=== PATIENT | female | born 2000 | race Hispanic/Latino ===

== ENCOUNTER 2018-03-16 17:43 | Day surgery (SDC) ==
[2018-03-16 18:36] VITALS: BMI 18.8
--- NOTE | 2018-03-16 18:38 | PDOC.LDHP ---
Labor and Delivery H&P Chief complaint: other Allergies/Adverse Reactions: Allergies Allergy/AdvReac Type Severity Reaction Status Date / Time No Known Allergies Allergy Verified 03/16/18 18:27
--- NOTE | 2018-03-16 18:55 | PDOC.FPROB ---
FMR OB H&P: HPI - History of Present Illness Chief Complaint: Vaginal spotting Indentification: 17 year old at 26.5 wks by LMP/2T u/s History of Present Illness: 17 year old at 26.5 wks by LMP/2T fan with GAYLE of 06/17/2018 that presents with vaginal spotting. Patient states that she laid down for a nap and noted was awoken with an upset stomach. This happened on two separate occasions. The second time she went to the restroom and noted what appeared to be dark brown blood covering half of her panty liner. She state that one time after that she went to the restroom and noted some dark blood when wiping. She has been to the restroom several times since then and has not noted any blood. Patient states that ever since becoming she has had an increase in vaginal discharge, but there has been no change in the discharge from when it first started. Patient denies LoF, contractions, headache, scotoma, or RUQ pain. Patient endorses good movement. Primary Care Physician: ROSETTE Heredia FMR OB H&P: Current - Care : 1 Para: 0 Gestational age: 26.5 wks Due date: 06/17/2018 - OB Labs Blood type: O RH: positive Antibody Screen: negative HIV: negative RPR: negative HepBsAg: negative Rubella: immune GBS: unknown Additional labs: Reported hx of chlamydia at 20 wks s/p treatment with reported negative MERYL FMR OB H&P: History - Past Medical History PMH: Insignificant - OB History OB History: Chlamydia at 20 wks s/p treatment with reported negative MERYL - Social History Social History: Denies alcohol, drug, or tobacco use - Family History Family History: Noncontributory FMR OB H&P: Medications - Current Home Medications: Medication Instructions Recorded Confirmed Type Vit Calc,Iron,Folic 1 each PO DAILY 03/16/18 03/16/18 History [ Vitamins] Allergies/Adverse Reactions: Allergies Allergy/AdvReac Type Severity Reaction Status Date / Time No Known Allergies Allergy Verified 03/16/18 18:27 FMR OB H&P: ROS - Review of Systems General: denies: fever/chills, weight/appetite/sleep changes, fatigue Eyes: denies: vision changes, double vision, scotomas ENT: denies: nasal congestion, rhinorrhea Cardiovascular: denies: chest pain, palpitation, edema, paroxysmal nocturnal dyspnea Respiratory: denies: cough, congestion, shortness of breath Gastrointestinal: denies: abdominal pain, bloating, cramping, nausea, vomiting, diarrhea, constipation, bright red blood Genitourinary (Female): reports: polyuria, vaginal discharge, vaginal bleeding. denies: incontinence, dysuria, hematuria, vaginal pain, contractions, vaginal pressure Musculoskeletal: denies: pain, tenderness Neurologic: denies: numbness, syncope, seizures, weakness Integumentary: denies: itching, lesions Psychological: denies: depression, anxiety FMR OB H&P: Vital Signs - Maternal Vital signs: BP 118/78 Pulse 77 - Heart Tones Baseline: 140 Variability: moderate Acceleration: present Deceleration: absent Category: category 1 [place] contractions every: Irritability FMR OB H&P: Physical Exam - Physical Exam General: NAD, awake, alert and oriented HEENT: normocephalic and atraumatic, MMM, grossly normal vision, grossly normal hearing, good dention Neck: supple Heart: RRR, pulses present, no edema General: CTAB, no respiratory distress, no retractions Abdomen: soft, gravid, non-tender, bowel sound present Musculoskeletal: normal gait and station, pulses present Neurological: no tremor, no focal deficit Skin: no rash, capillary refill <2 seconds Lymphatic: no unusual bruising or bleeding Psychiatric: intact recent and remote memory, good judgement and insight, normal mood and affect - Pelvic Exam Vulva: normal hair distribution, no masses, no lesions, no discharge, no blood Cervix: no masses, no lesions, no blood Deviation from normal: Moderate amount of thin, green discharge noted SVE: Sterile speculum exam showed cervix closed, no bleeding from os FMR OB H&P: A/P - Problem List (1) Vaginal bleeding during Current Visit: Yes Status: Acute Code(s): O46.90 - ANTEPARTUM HEMORRHAGE, UNSPECIFIED, UNSPECIFIED TRIMESTER (2) Current Visit: Yes Status: Acute Qualifiers: Weeks of gestation: 26 weeks Qualified Code(s): Z3A.26 - 26 weeks gestation of Assessment and Plan: 17 year old at 26.5 wks by LMP/2T u/s with GAYLE of 06/17/2018 Vaginal bleeding in 2nd trimester - Description of vaginal spotting on two separate occasions that has since resolved. Patient denies any contractions, abdominal pain, or back pain. Abdomen soft and non-tender to palpation. - UA pending - GC/CT PCR pending - VP3 pending - Will call patient with results of above studies - Placental location anterior fundal by bedside ultrasound - Speculum exam showed no vaginal lesions or trauma. No cervical lesions or trauma. No bleeding from cervical os identified. Moderate amount of thin, yellow /green discharge noted. Sent for analysis as above. Cervix noted to be closed on speculum exam. - Blood type O+; no need for rhogam - Reassurance provided to patient - Patient advised to follow up at [facility] as scheduled on 03/26/2018 sIUP - No complications in this Disposition: Stable. Home. Discussion: Date/Time: 03/16/18 2017 This H&P was discussed with [Demetra] who agrees with the above documentation and plan. Signature: Phyllis Turner, PGY-2
[2018-03-16 20:28] LABS: Bilirubin Negative (Negative); Blood, Urine Negative (Negative); Clarity CLEAR (Clear); Glucose, Urine (Dipstick) Negative (Negative); Leukocyte Negative (Negative); Nitrite Negative (Negative); Protein, Urine (Dipstick) Negative (Neg-Trace); Specific Gravity, Urine 1.008 (1.002-1.036); Urobilinogen 0.2 mg/dL (0.2-1.0); pH, Urine 7.5 (5.0-9.0)
--- NOTE | 2018-03-16 22:00 | PDOC.EVN ---
Event Note - Event Note Event Note: Patient notified by phone of positive BV result on VP3 at approximately 21:30; Flagyl prescription sent to [facility] on [address]. Patient voiced her understanding and stated she would mushroom picker the prescription within the hour.
[2018-03-19 21:57] LABS: Chlamydia by PCR Not Detected (NotDetected); GC by PCR Not Detected (NotDetected)
== END 2018-03-16 20:15 | disposition home or self-care (01) ==
LOC: L&D/OP 17:43
PROVIDERS: ATTEND Obstetrics & Gynecology
DX: O26.852 Spotting complicating pregnancy, second trimester (principal); O23.592 Infection of other part of genital tract in pregnancy, second trimester; B96.89 Other specified bacterial agents as the cause of diseases classified elsewhere; Z3A.26 26 weeks gestation of pregnancy; Z79.899 Other long term (current) drug therapy
CPT/HCPCS: 59025; 76815; 81003; 87480; 87491; 87510; 87591; 87660; 99285

== ENCOUNTER 2018-06-11 13:03 | Inpatient (IN) | payer MEDICAID, OTHER, SELFPAY ==
[2018-06-11] MEDS ORDERED: Promethazine HCl 25 MG/ML VIAL IM PRN (14:12)
[2018-06-11] MEDS ORDERED: NS / Oxytocin 40 units/1000ml 1,000 ML IV PRN (14:12)
[2018-06-11] MEDS ORDERED: Ondansetron PF 4 MG/2 ML Vial IVP PRN (14:12)
[2018-06-11] MEDS ORDERED: Lidocaine 1% (PF) 30 ML VIAL SC PRN (14:12)
--- NOTE | 2018-06-11 14:19 | PDOC.FPROB ---
FMR OB H&P: HPI - History of Present Illness Chief Complaint: Ctx Indentification: 17 yo @ 39.1 wks dated by 13.2 wk U/S History of Present Illness: Pt comes in with c/c of ctx since last night. Pt reports ctx initially 5 minutes apart. They have continued to get closer together and more intense in pain. Pt reports being SOB during ctx. Denies any headaches, vision changes. Denies any chest pain. +FM, reports a little bleeding and vaginal discharge when she pees. Denies any large clots. Denies any urinary sx's. Denies any n/v. Denies any RUQ pain. Denies any swelling. 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: N/A - Surgical History Sx History: N/A - Social History Social History: Denies any smoking, alcohol or illicit drug use - Family History Family History: Insignificant FMR OB H&P: Medications - Current Home Medications: Medication Instructions Recorded Confirmed Type Vit Calc,Iron,Folic 1 each PO DAILY 03/16/18 06/11/18 History [ Vitamins] Allergies/Adverse Reactions: Allergies Allergy/AdvReac Type Severity Reaction Status Date / Time No Known Allergies Allergy Verified 03/16/18 18:27 FMR OB H&P: ROS - Review of Systems General: denies: fever/chills, weight/appetite/sleep changes Eyes: denies: vision changes Cardiovascular: denies: chest pain, edema Respiratory: reports: shortness of breath (With ctx) Gastrointestinal: reports: abdominal pain. denies: cramping, nausea, vomiting, diarrhea, constipation Genitourinary (Female): reports: vaginal discharge (When she pees, denies any odor), contractions, vaginal pressure. denies: vaginal pain Musculoskeletal: denies: pain Neurologic: denies: numbness, weakness Integumentary: denies: itching, rash, lesions Hematologic/Lymphatic: denies: prolonged or excessive bleeding FMR OB H&P: Vital Signs - Heart Tones Baseline: 150 Variability: moderate Acceleration: present Deceleration: absent Category: category 1 [place] contractions every: 2-3 minutes FMR OB H&P: Physical Exam - Physical Exam General: NAD, awake, alert and oriented HEENT: normocephalic and atraumatic, grossly normal hearing Neck: supple, trachea midline Heart: RRR, normal S1/S2, no murmurs/rubs/gallops, pulses present, no edema General: CTAB, no respiratory distress, good air movement, no rales/rhonchi, no wheezing Abdomen: soft, gravid, non-tender Musculoskeletal: normal gait and station, pulses present Neurological: sensation to pain,touch and proprioception grossly normal, DTR +2 Skin: no rash Psychiatric: good judgement and insight, normal mood and affect - Pelvic Exam Vulva: no masses, no discharge Cervix: no masses SVE: 14:00, 6.5/100/-1 Membranes: Intact Presentation: Cephalic FMR OB H&P: A/P - Problem List (1) Current Visit: Yes Status: Resolved Qualifiers: Weeks of gestation: 39 weeks Qualified Code(s): Z3A.39 - 39 weeks gestation of Disposition: 17 yo G1PO @ 39.1 wks dated by 13.2 wk u/s presents to L&D due to ctx. In labor -SVE @ 14:00 6.5/100/-1. Membranes intact. FHT baseline 150. Cat 1 strip. Ctx every 2 minutes. Will continuously monitor. No need for augmentation at this time. -Tylenol for pain at this time. -Pt unsure of epidural at this time. Will consult Anesthesia if decides. -GBS (-) Chlamydia pos early in pregancy. MERYL negative x2. Addendum - Attending - Attending Attestation Date/Time: 06/11/18 1510 I personally evaluated the patient and discussed the management with Dr. Heredia I agree with the History, Examination, Assessment and Plan documented above with any addition or exceptions noted below. 17 yo female at 39.1 wks by 13.2 wk sono admitted for active labor. Patient states contractions started last night. +FM. No LOF or vaginal bleeding. PNR reviewed. VS reviewed. SVE 6 cm. Intact. Cephalic. 7lbs. Requesting epidural for pain control. FHT cat 1 tracing. 1. sIUP: IOB labs reviewed. Anatomy reviewed. 1 hour gtt = 68. 3T labs negative. GBS negative. Flu 03/29/18. Tdap 03/29/18. 2. hx of chlamydia infection: Treated. MERYL negative x 2. Asymptomatic. Dispo: admit for labor. monitor. JamesMD
[2018-06-11] MEDS ORDERED: Acetaminophen 325 MG TAB PO PRN (14:23)
[2018-06-11 14:33] LABS: Hemoglobin 14.7 g/dL (12.0-16.0); Mean Corpuscular HGB CONC 34.2 g/dL (32.0-36.0); Mean Corpuscular Hemoglobin 31.6 pg (25.0-35.0); Mean Corpuscular Volume 92.4 fL (78.0-98.0); Mean Platelet Volume 8.6 fL (7.4-10.4); Platelet Count 274 thou/uL (130-400); RBC Distribution Width 11.9 % (11.5-14.5); Red Blood Cell (RBC) Count 4.64 mill/uL (4.00-5.20); White Blood Cell (WBC) Count 17.3 thou/uL (4.8-10.8)
[2018-06-11 14:35] VITALS: BMI 21.2
--- NOTE | 2018-06-11 14:35 | PDOC.EVN ---
Event Note - Event Note Event Note: Notified pt had SROM @ 14: 25. Thick meconium noted. Continue with plan of care. I personally evaluated the patient and discussed the management with Dr. Heredia I agree with the History, Examination, Assessment and Plan documented above with any addition or exceptions noted below. 17 yo female at 39.1 wks by 13.2 wk sono admitted for active labor. SROM with thick meconium at 14:25. VS reviewed. Cat 1 tracing. Now 9 cm. 1. sIUP: IOB labs reviewed. Anatomy reviewed. 1 hour gtt = 68. 3T labs negative. GBS negative. Flu 03/29/18. Tdap 03/29/18. 2. hx of chlamydia infection: Treated. MERYL negative x 2. Asymptomatic. 3. Thick mec: Will have nursery nurse attend delivery. Dispo: Continue monitoring. Mildred
--- NOTE | 2018-06-11 14:47 | PDOC.LDPN ---
Labor & Delivery Progress Note - Subjective Subjective: painful contractions, vaginal pressure - Objective Vital signs reviewed and normal: yes General: breathing through contractions Uterine fundus: non tender SVE: 14:45 Station: 0 FHT: category 1 [place] contractions every: 3 Other exam findings: ROM@14:30. Thick meconium noted. - Assessment (1) Current Visit: Yes Status: Resolved Qualifiers: Weeks of gestation: 39 weeks Qualified Code(s): Z3A.39 - 39 weeks gestation of Plan: continue plan of care -: 17 yo G1PO @ 39.1 wks dated by 13.2 wk u/s presents to L&D due to ctx. In labor -SVE @ 14:45 9/100/0. SROM@1430. Thick Meconium fluid noted. FHT baseline 150. Cat 1 strip. Ctx every 2 minutes. Will continuously monitor. No need for augmentation at this time. -Tylenol for pain at this time. -Pt unsure of epidural at this time. Will consult Anesthesia if decides. -GBS (-) Chlamydia pos early in pregancy. MERYL negative x2. Addendum - Physician - Physician Attestation Date/Time: 06/11/18 [id number] I personally evaluated the patient and discussed the management with Dr. Heredia I agree with the History, Examination, Assessment and Plan documented above with any addition or exceptions noted below. 17 yo female at 39.1 wks by 13.2 wk sono admitted for active labor. Patient tolerating contractions. VS reviewed. Cat 1 tracing. Now 9 cm. SROM with thick meconium at 14:25. 1. sIUP: IOB labs reviewed. Anatomy reviewed. 1 hour gtt = 68. 3T labs negative. GBS negative. Flu 03/29/18. Tdap 03/29/18. 2. hx of chlamydia infection: Treated. MERYL negative x 2. Asymptomatic. 3. Thick mec: Will have nursery nurse attend delivery. Dispo: Continue monitoring. Mildred
[2018-06-11 15:04] LABS: HBSAg Index 0.16 S/CO (0-0.99); Hep B Surf Ag Non-Reactive S/CO (NonReactive); Syphilis Antibody Nonreactive (Nonreactive); Syphilis Antibody Index 0.02 S/CO (<1.00 Non-Reactive)
[2018-06-11] MEDS ORDERED: Misoprostol 200 MCG TAB VAG PRN (16:07)
[2018-06-11] MEDS ORDERED: Milk Of Magnesia 30 ML UDCUP PO PRN (16:07)
[2018-06-11] MEDS ORDERED: diphenhydrAMINE 25 MG CAP PO PRN (16:07)
[2018-06-11] MEDS ORDERED: Methylergonovine 0.2 MG/ML VIAL IM PRN (16:07)
[2018-06-11] MEDS ORDERED: Methylergonovine 0.2 MG TAB PO PRN (16:07)
[2018-06-11] MEDS ORDERED: Preparation H Ointment 28 GM TUBE PR PRN (16:07)
[2018-06-11] MEDS ORDERED: Bisacodyl 10 MG SUPP PR PRN (16:07)
[2018-06-11] MEDS ORDERED: Adacel (T-DAP) 0.5 ML SYRINGE IM ONE (16:07)
[2018-06-11] MEDS ORDERED: NS / Oxytocin 40 units/1000ml 1,000 ML ONE (16:40)
[2018-06-11] MEDS: Ibuprofen 800 MG TAB PO SCH (21:55)
[2018-06-11] MEDS: Docusate Calcium (SURFAK) 240 MG CAP PO SCH (21:55)
--- NOTE | 2018-06-12 05:48 | DN ---
DATE OF PROCEDURE: 06/11/2018 DELIVERING PHYSICIANS: 1. Fabio Lucero MD, PGY-1. 2. Marv Heredia MD, PGY-2. ATTENDING: Sabrina Milian MD PROCEDURE PERFORMED: Spontaneous vaginal delivery. ANESTHESIA: Local for repair. ESTIMATED BLOOD LOSS: 50 mL. PREOPERATIVE DIAGNOSES: 1. Term intrauterine in labor. 2. History of chlamydia in , treatment care x2 negative. POSTOPERATIVE DIAGNOSIS: Term intrauterine , delivered. INDICATIONS: A 17-year-old female, G1, P0-0-0-0, presents in active labor. DELIVERY NOTE: This is a 17-year-old female, G1, P 0-0-0-0 at 39 and 1 week, who delivered a viable female at 1504 hours. Following an uneventful antepartum course, a vigorous female was delivered over the intact perineum in the occiput anterior position. Anterior shoulder and remainder of the body delivered. No nuchal cord. The head was held down, and mouth and nares were bulb suctioned. Cord was delayed clamping and cutting. Cord bloods collected. Placenta delivered intact with 3-vessel cord noted. Fundal massage was performed and the fundus was firm. The cervix and vagina were inspected, and there was found to be a first-degree perineal laceration. It was noted and repaired with 3-0 chromic in the usual fashion with good approximation and hemostasis. After local anesthetic, lidocaine 10 mL was injected at this site. Infant went to [facility] in good condition for routine care. Apgars were 8 and 9 at 1 and 5 minutes respectively. The patient tolerated delivery well and went to after a routine recovery/care. Job ID: [id number] Attending Note: I was present and participated in the above documented procedure. 17 yo female at 39.1 wks by 13.2 wk sono presented to L&D in active labor. Progressed spontaneously and quickly. SROM with thick mec at 1425. Patient delivered a female in OA position over an intact perineum. No nuchal noted. Delayed cord clamping performed. APGARs 8/9. Nursery nurse present for delivery but no respiratory complications with delivery. Placenta delivered intact with 3 VC with assistance of gentle manual traction. Not sent to path. 1st degree perineal laceration repaired in usual fashion without complications. Local used for repair. Patient will be transferred to for routine care. QBL 50 mL ABrayMD MTDD
[2018-06-12] MEDS: Ibuprofen 800 MG TAB PO SCH ×3 (06:06→21:02)
[2018-06-12 06:17] LABS: Hemoglobin 12.3 g/dL (12.0-16.0); Mean Corpuscular Hemoglobin 31.9 pg (25.0-35.0); Mean Corpuscular Volume 93.8 fL (78.0-98.0); Mean Platelet Volume 8.3 fL (7.4-10.4); Platelet Count 234 thou/uL (130-400); Red Blood Cell (RBC) Count 3.86 mill/uL (4.00-5.20); White Blood Cell (WBC) Count 17.9 thou/uL (4.8-10.8)
--- NOTE | 2018-06-12 07:19 | PDOC.OBPPN ---
FMR OB PN: Subj - Interval History Hospital Day: 2 Day: 1 Chief Complaint: None Indentification: 17 yo ->1 @ 39.1 wks dated by 13.2 wk u/s delivered KORIN Flores via . Interval History: Denies pain, headache, vision changes. Denies SOB FMR OB PN: Obj - Maternal Vital signs: BP: 118/65 HR: 87 RR: 18 Tmax: 97.9 Pox: 98% on RA Wt: 52.617 kg - Urine output I&O: Voided in toilet - Lochia Lochia: Reports like her period at this time. FMR OB PN: Exam - Physical Exam General: NAD, awake, alert and oriented HEENT: normocephalic and atraumatic Neck: supple, trachea midline Heart: RRR, normal S1/S2, no murmurs/rubs/gallops, pulses present, no edema General: CTAB, no respiratory distress, good air movement, no rales/rhonchi, no wheezing, no retractions Abdomen: soft, non-tender, bowel sound present Musculoskeletal: pulses present Neurological: sensation to pain,touch and proprioception grossly normal, DTR +2 Skin: no rash, good tugor, capillary refill <2 seconds Lymphatic: no unusual bruising or bleeding - Pelvic Exam : perineal incision/laceration healing well, sutures intact, no discharge, no edema FMR OB PN: Data - Labs Lab results: Laboratory Results - last 24 hr 06/11/18 06/11/18 06/11/18 14:10 14:10 14:10 WBC RBC Hgb Hct MCV MCH MCHC RDW Plt Count MPV Syphilis IgG/IgM Ab Nonreactive Hep Bs Antigen Non-Reactive Blood Type O POSITIVE Antibody Screen NEGATIVE 06/11/18 06/12/18 14:10 05:40 WBC 17.3 H 17.9 H RBC 4.64 3.86 L Hgb 14.7 12.3 Hct 42.9 36.2 MCV 92.4 93.8 MCH 31.6 31.9 MCHC 34.2 34.0 RDW 11.9 12.0 Plt Count 274 234 MPV 8.6 8.3 Syphilis IgG/IgM Ab Hep Bs Antigen Blood Type Antibody Screen FMR OB PN: A/P - Problem List (1) Current Visit: Yes Status: Resolved Qualifiers: Weeks of gestation: 39 weeks Qualified Code(s): Z3A.39 - 39 weeks gestation of Disposition: 17 yo G1PO->1 @ 39.1 wks dated by 13.2 wk u/s delivered KORIN via on 06/11/18. - at 15:06. 1st degree laceration repaired. Intact. No sign of bleeding. Uterus firm and below umbilicus -Tylenol/ Ibuprofen for pain. reports pain as minimal at this time. -Routine post care -Pt - Nurse consulted. -GBS (-) Chlamydia pos early in pregancy. MERYL negative x2. Addendum - Attending - Attending Attestation Date/Time: 06/12/18 1246 I personally evaluated the patient and discussed the management with Dr. Heredia I agree with the History, Examination, Assessment and Plan documented above with any addition or exceptions noted below. 17 yo now female s/p at 39.1 wks on 06/11/18 at 15:06 Doing well. Pain controlled. Lochia mild. VS reviewed. NAD. Breast feeding. RRR. no murmurs CTA bilaterally. no w/c/r fundus firm. nontender FROM no edema 1. s/p : Continue routine pp care. 2. hx of chlamydia infection: Treated. MERYL negative x 2. Asymptomatic. 3. Thick mec 4. Blood loss: Total QBL 410 mL. Brisk bleeding after delivery which totaled 360 mL. Received miso 800 mcg [place]. Lochia mild. H&H stable. Dispo: Continue routine pp care. 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 Unsure of contraception. Mildred
[2018-06-12] MEDS: Docusate Calcium (SURFAK) 240 MG CAP PO SCH ×2 (09:28→21:02)
[2018-06-12] MEDS: Prenatal Vitamin 1 TAB PO SCH (09:28)
[2018-06-12] MEDS: Lanolin Ointment 7 GM TUBE TOP PRN (13:52)
[2018-06-13] MEDS: Ibuprofen 800 MG TAB PO SCH ×2 (06:28→13:51)
--- NOTE | 2018-06-13 07:04 | PDOC.OBPPN ---
FMR OB PN: Subj - Interval History Hospital Day: 3 Day: 2 Chief Complaint: Reports having some low back pain, Reports motrin not helping much Indentification: 17 yo ->1 @ 39.1 wks dated by 13.2 wk u/s delivered KORIN F via . Interval History: Denies chest pain, SOB, swelling, f/c. Tolerating PO. No urinary sx's. FMR OB PN: Obj - Maternal Vital signs: BP: [119/61] HR: [79] RR: [16] Tmax: [98.1] Pox: [98]% on [RA] - Urine output I&O: Voided in toilet - Lochia Lochia: Reports field nurse than period - Pain Management Intervention: oral medication FMR OB PN: Exam - Physical Exam General: NAD, awake, alert and oriented HEENT: normocephalic and atraumatic Neck: supple, trachea midline Heart: RRR, normal S1/S2, no murmurs/rubs/gallops, pulses present, no edema General: CTAB, no respiratory distress, good air movement, no rales/rhonchi, no wheezing, no retractions Abdomen: soft, non-tender, bowel sound present, no masses Musculoskeletal: pulses present, FROM in all four extremities Neurological: sensation to pain,touch and proprioception grossly normal, DTR +2 Skin: no rash, capillary refill <2 seconds Psychiatric: good judgement and insight, normal mood and affect - Pelvic Exam : perineal incision/laceration healing well, sutures intact, no discharge, normal lochia FMR OB PN: A/P - Problem List (1) Current Visit: Yes Status: Resolved Qualifiers: Weeks of gestation: 39 weeks Qualified Code(s): Z3A.39 - 39 weeks gestation of Disposition: 17 yo G1PO->1 @ 39.1 wks dated by 13.2 wk u/s delivered TAGA via on 06/11/18. - at 15:06. 1st degree laceration repaired. Intact. No sign of bleeding. Uterus firm and below umbilicus. Reports lochia as light -Tylenol/ Ibuprofen for pain. Reports back pain. Has taken ibuprofen. Advised to try and take tylenol. -Pt - Nurse consulted. Pt doing well today. -GBS (-) -No other concerns. Pt likely to be d/c later today. Chlamydia pos early in pregancy. MERYL negative x2. Addendum - Attending - Attending Attestation Date/Time: 06/13/18 8084 I personally evaluated the patient and discussed the management with Dr. Heredia I agree with the History, Examination, Assessment and Plan documented above with any addition or exceptions noted below. 17 yo now female s/p at 39.1 wks on 06/11/18 at 15:06 PPD# 2 Doing well. Pain controlled. Lochia mild. Breast feeding without difficulty. VS reviewed. NAD. RRR. no murmurs CTA bilaterally. no w/c/r fundus firm. nontender FROM no edema 1. s/p : Continue routine pp care. 2. hx of chlamydia infection: Treated. MERYL negative x 2. Asymptomatic. 3. Blood loss anemia: Total QBL 410 mL. Brisk bleeding after delivery. Received miso 800 mcg [place] to prevent further hemorrhage. Lochia mild to minimal today. H& H stable. 4. Contraception: Unsure still. Dispo: Ok to d/c to home today. Follow up in 2 wks at [facility]. Mildred
[2018-06-13 08:15] VITALS: BP 125/64; TEMP 98.2
[2018-06-13] MEDS: Prenatal Vitamin 1 TAB PO SCH (09:50)
[2018-06-13] MEDS: Docusate Calcium (SURFAK) 240 MG CAP PO SCH (09:50)
[2018-06-13] MEDS: Lanolin Ointment 7 GM TUBE TOP PRN (13:55)
== END 2018-06-13 14:50 | disposition home or self-care (01) | DRG 807 ==
LOC: L&D/OP 13:03 → L&D 14:17 → 3SW 17:58
PROVIDERS: ADMIT Student in an Organized Health Care Education/Training Program; ATTEND Student in an Organized Health Care Education/Training Program
PROC: 10E0XZZ Delivery of Products of Conception, External Approach (ICD-10-PCS; principal; 2018-06-11)
PROC: 0HQ9XZZ Repair Perineum Skin, External Approach (ICD-10-PCS; 2018-06-11)
DX: O70.0 First degree perineal laceration during delivery (principal); Z37.0 Single live birth; Z3A.39 39 weeks gestation of pregnancy; O77.0 Labor and delivery complicated by meconium in amniotic fluid; O90.81 Anemia of the puerperium; D64.89 Other specified anemias
CPT/HCPCS: 36415; 85027; 86780; 86850; 86900; 86901; 87340; 90715; 99285; J2001